=== PATIENT | female | born 2000 | race Caucasian/White ===

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

== ENCOUNTER 2020-01-11 15:37 | Emergency (ER) | payer OTHER ==
[~2020-01-11] VITALS: Ht 162.5 cm; Wt 77.1 kg
== END 2020-01-11 16:46 ==
LOC: ED 15:37
DX: M25.551 Pain in right hip (principal); Z53.21 Procedure and treatment not carried out due to patient leaving prior to being seen by health care provider

== ENCOUNTER 2020-05-03 14:51 | Emergency (ER) | payer OTHER ==
[~2020-05-03] VITALS: Wt 68.0 kg
[2020-05-03 15:30] LABS: BASO # 0.1 10*3/uL (0.0-0.1); BASO % 0.4 % (0.0-1.0); EOS # 0.1 10*3/uL (0.0-0.4); EOS % 0.5 % (1.0-4.0); HEMATOCRIT 41.2 % (37.0-47.0); LYMPH # 2.9 10*3/uL (1.3-4.4); LYMPH % 22.9 % (27.0-41.0); MEAN CELL VOLUME 81.9 fl (81.0-99.0); MEAN CORPUSCULAR HGB 27.6 pg (27.0-31.0); MEAN CORPUSCULAR HGB CONC 33.7 g/dl (33.0-37.0); MEAN PLATELET VOLUME 9.1 fl (9.6-12.3); MONO # 0.8 10*3/uL (0.1-1.0); MONO % 6.7 % (3.0-9.0); NEUT # 8.6 10*3/uL (2.3-7.9); NEUT % 69.2 % (47.0-73.0); PLATELET COUNT AUTOMATED 443 10*3/uL (130-400); RED BLOOD COUNT 5.03 10*6/uL (4.10-5.10); RED CELL DISTRI WIDTH 13.1 % (0-14.5); WHITE BLOOD COUNT 12.4 10*3/uL (4.8-10.8)
[2020-05-03 15:35] LABS: BILIRUBIN 1+ (NEGATIVE); BLOOD NEGATIVE (NEGATIVE); CLARITY CLOUDY (CLEAR); COLOR YELLOW (YELLOW); GLUCOSE NEGATIVE (NEGATIVE); KETONE NEGATIVE (NEGATIVE); LEUKO ESTERASE 2+ (NEGATIVE); NITRITE POSITIVE (NEGATIVE); PH 7.5 (5.0-9.0)
[2020-05-03 15:36] LABS: BACTERIA 4+; EPITHELIAL CELLS TNTC; MUCOUS 3+
[2020-05-03 15:47] LABS: ALBUMIN 3.7 gm/dl (3.1-4.5); ALKALINE PHOSPHATASE 95 U/L (45-117); BUN 7 mg/dl (7-24); CHLORIDE 107 mmol/L (98-107); CREATININE 0.68 mg/dL (0.55-1.02); POTASSIUM 3.9 mmol/L (3.5-5.1); SGOT/AST 28 IU/L (3-35); SGPT/ALT 47 U/L (12-78); SODIUM 137 mmol/L (136-145); TOTAL PROTEIN 7.9 gm/dL (6.4-8.2)
[2020-05-03] MEDS ORDERED: CEPHALEXIN500 M1 PO (17:40)
== END 2020-05-03 17:50 | disposition home or self-care (01) ==
LOC: ED 14:51
PROVIDERS: Nurse Practitioner Family
DX: O23.41 Unspecified infection of urinary tract in pregnancy, first trimester (principal); Z3A.08 8 weeks gestation of pregnancy; Z88.6 Allergy status to analgesic agent

== ENCOUNTER → 2020-08-19 | Outpatient (CLI) | payer OTHER ==
[~2020-08-19] MED LIST: CEPHALEXIN500 M1 PO
== END | disposition home or self-care (01) ==
LOC: US 13:34
PROVIDERS: ATTEND Nurse Practitioner Women's Health
DX: Z34.82 Encounter for supervision of other normal pregnancy, second trimester (principal); Z3A.22 22 weeks gestation of pregnancy

== ENCOUNTER 2021-11-20 11:19 | Emergency (ER) | payer OTHER ==
[~2021-11-20] VITALS: Ht 162.5 cm; Wt 86.2 kg
[2021-11-20] MEDS ORDERED: NORETH EE FE PO (11:45)
[2021-11-20] MEDS ORDERED: PREDNISONE20 M1 PO (12:11)
[2021-11-20] MEDS ORDERED: AUGMENTIN 875875 MG PO (12:11)
== END 2021-11-20 13:20 | disposition home or self-care (01) ==
LOC: ED 11:19
DX: J02.0 Streptococcal pharyngitis (principal); Z88.6 Allergy status to analgesic agent; Z79.899 Other long term (current) drug therapy

== ENCOUNTER 2025-06-04 23:34 | Emergency (ER) | payer MEDICAID ==
[~2025-06-04] VITALS: Wt 99.8 kg
[~2025-06-04 23:34] MED LIST changes: +AUGMENTIN 875875 MG PO; +NORETH EE FE PO; +PREDNISONE20 M1 PO
== END 2025-06-05 02:00 | disposition home or self-care (01) ==
LOC: ED 23:34
DX: S96.912A Strain of unspecified muscle and tendon at ankle and foot level, left foot, initial encounter (principal); Z88.6 Allergy status to analgesic agent; Z98.890 Other specified postprocedural states; X50.1XXA Overexertion from prolonged static or awkward postures, initial encounter; Y93.89 Activity, other specified; Y92.89 Other specified places as the place of occurrence of the external cause; Y99.8 Other external cause status

== ENCOUNTER 2025-06-25 02:27 | Emergency (ER) | payer MEDICAID ==
[~2025-06-25] VITALS: Ht 162.5 cm
[2025-06-25] MEDS ORDERED: Ondansetron Hydrochloride 4 MG TAB SL ONE (03:10)
[2025-06-25] MEDS ORDERED: Acetaminophen/Hydrocodone ES 7.5/325 tablet PO ONE (03:10)
[2025-06-25] MEDS ORDERED: HYDROCODONE-AC1 EAC1 PO (04:13)
== END 2025-06-25 04:29 | disposition home or self-care (01) ==
LOC: ED 02:27
DX: S52.571A Other intraarticular fracture of lower end of right radius, initial encounter for closed fracture (principal); Z88.6 Allergy status to analgesic agent; W10.8XXA Fall (on) (from) other stairs and steps, initial encounter; Y93.89 Activity, other specified; Y92.89 Other specified places as the place of occurrence of the external cause; Y99.8 Other external cause status